=== PATIENT | female | born 1945 | race Two or more races ===

== ENCOUNTER 2019-04-16 05:00 | Day surgery (SDC) | payer OTHER ==
[~2019-04-16 05:00] MED LIST: CRESTOR5 MG PO; VIT A,C,D-0.25 MG/1 PO
[2019-04-16] MEDS ORDERED: MORGIDOX100 MG PO (08:53)
[2019-04-16] MEDS ORDERED: Tylenol #3 PO (08:53)
== END 2019-04-16 13:40 | disposition home or self-care (01) ==
LOC: CIR.AMB 05:00
DX: N84.0 Polyp of corpus uteri (principal); D25.0 Submucous leiomyoma of uterus